=== PATIENT | male | born 1960 | race Caucasian/White ===

== ENCOUNTER 2017-06-29 15:41 | Inpatient (IN) | payer OTHER ==
[~2017-06-29] VITALS: Ht 182.9 cm; Wt 155.5 kg
[~2017-06-29 15:41] MED LIST: DIGO125T87 PO; FURO20TA4 PO; METO-409 PO; RIVA20TA PO
[2017-06-29] MEDS ORDERED: SODIUM CHLORIDE 0.9% 1000ML 1,000 ML IV ONE (16:29)
[2017-06-29 16:50] LABS: BASOPHILS % (AUTO) 0.3 % (0.0-5.0); HEMATOCRIT 45.9 % (42-54); LYMPHOCYTES % (AUTO) 14.1 % (21.0-51.0); MEAN CORPUSCULAR HEMOGLOBIN 30.9 pg (27.0-33.0); MEAN CORPUSCULAR HGB CONC 34.8 g/dL (32.0-36.0); MEAN CORPUSCULAR VOLUME 88.8 fL (79-99); MONOCYTES % (AUTO) 9.8 % (3.0-13.0); NEUTROPHILS % (AUTO) 75.8 % (40.0-77.0); PLATELET COUNT (AUTO) 148 K/uL (130-400); RED BLOOD CELL COUNT(AUTO) 5.17 MIL/uL (4.50-6.20); RED CELL DISTRIBUTION WIDTH 14.3 % (11.0-15.5); WHITE BLOOD COUNT (AUTO) 7.8 K/uL (4.8-10.8)
[2017-06-29 17:02] LABS: CREATININE 2.1 mg/dL (0.5-1.5); POTASSIUM 4.1 mmol/L (3.5-5.1)
[2017-06-29 17:03] LABS: INR 1.4 (0.85-1.15); PARTIAL THROMBOPLASTIN TIME 43.7 SEC (26.3-35.5); PROTHROMBIN TIME 14.6 SEC (9.6-11.6)
[2017-06-29 17:05] LABS: ALBUMIN 2.8 g/dL (3.5-5.0); BILIRUBIN,TOTAL 1.4 mg/dL (0.2-1.0); TOTAL PROTEIN, SERUM 6.2 g/dL (6.0-8.3)
[2017-06-29 23:41] LABS: APPEARANCE,URINE Clear (CLEAR); BILIRUBIN,URINE Small (NEGATIVE); COLOR,URINE Dark Yellow (YELLOW); GLUCOSE, URINE (UA) Negative (NEGATIVE); KETONES,URINE Trace mg/dL (NEGATIVE); LEUKOCYTE ESTERASE ,URINE Trace (NEGATIVE); NITRATE,URINE Negative (NEGATIVE); OCCULT BLOOD,URINE Negative (NEGATIVE); PH,URINE 5.5 (5.0-8.0); PROTEIN,URINE Trace (NEGATIVE)
[2017-06-30 00:02] LABS: BACTERIA,URINE Rare /HPF (None Seen); MUCUS,URINE Moderate LPF (None Seen); SQUAMOUS EPITHELIAL CELL,UR Moderate /LPF (0-2)
[2017-06-30] MEDS ORDERED: ACETAMINOPHEN 325 MG TAB PO PRN (02:15)
[2017-06-30] MEDS ORDERED: CEFTRIAXONE 1GM/D5W 50ML 50 ML IV SCH (02:15)
[2017-06-30] MEDS ORDERED: MORPHINE SULFATE 2 MG/ML 1ML SYG IV PRN (02:15)
[2017-06-30] MEDS ORDERED: HYDRALAZINE HCL 20 MG/ML VIAL IV PRN (02:15)
[2017-06-30] MEDS ORDERED: ONDANSETRON HCL 4 MG/2 ML VIAL IV PRN (02:15)
[2017-06-30] MEDS ORDERED: CEFTRIAXONE SODIUM 1 GM ONE (02:53)
[2017-06-30] MEDS: CEFTRIAXONE SODIUM 1 GM IVP SCH (03:00)
[2017-06-30 03:24] VITALS: BP 138/61
[2017-06-30] MEDS: SODIUM CHLORIDE 0.9% 1000ML 1,000 ML IV SCH ×2 (03:30→12:11)
[2017-06-30] MEDS ORDERED: SACU1TAB7 PO (05:03)
[2017-06-30 06:20] LABS: HEMATOCRIT 43.4 % (42-54); LYMPHOCYTES % (AUTO) 10.3 % (21.0-51.0); MEAN CORPUSCULAR VOLUME 88.3 fL (79-99); MONOCYTES % (AUTO) 11.3 % (3.0-13.0); NEUTROPHILS % (AUTO) 78.4 % (40.0-77.0); NUCLEATED RED BLOOD CELLS 0.2 % (0.0-0.19); PLATELET COUNT (AUTO) 144 K/uL (130-400); RED BLOOD CELL COUNT(AUTO) 4.91 MIL/uL (4.50-6.20); RED CELL DISTRIBUTION WIDTH 14.3 % (11.0-15.5); WHITE BLOOD COUNT (AUTO) 7.1 K/uL (4.8-10.8)
[2017-06-30 06:32] LABS: ALBUMIN 2.6 g/dL (3.5-5.0); BILIRUBIN,TOTAL 1.2 mg/dL (0.2-1.0); CREATININE 1.6 mg/dL (0.5-1.5); POTASSIUM 3.8 mmol/L (3.5-5.1); TOTAL PROTEIN, SERUM 6.1 g/dL (6.0-8.3)
[2017-06-30 07:36] VITALS: BP 125/59
[2017-06-30] MEDS ORDERED: METOPROLOL TARTRATE 1 MG/ML 5ML VIAL IV PRN (09:15)
[2017-06-30] MEDS: FAMOTIDINE 20MG TAB 20 MG TAB PO SCH ×2 (09:19→20:09)
[2017-06-30] MEDS: DIGOXIN 125 MCG TABLET PO SCH (09:19)
[2017-06-30] MEDS: METOPROLOL TARTRATE 50 MG TAB PO SCH ×2 (09:19→20:10)
[2017-06-30] MEDS: RIVAROXABAN 20 MG TABLET PO SCH (09:20)
[2017-06-30] MEDS: FUROSEMIDE 20 MG TABLET PO SCH (09:20)
[2017-06-30 11:49] VITALS: BP 95/46
[2017-06-30 11:58] LABS: MAGNESIUM 1.9 mg/dL (1.80-2.40); THYROID STIMULATING HORMONE 1.19 uIU/mL (0.36-3.74)
[2017-06-30 16:47] VITALS: BP 108/63
[2017-06-30 18:55] VITALS: BP 101/66
[2017-06-30 23:04] VITALS: BP 86/41
[2017-07-01] MEDS: SODIUM CHLORIDE 0.9% 1000ML 1,000 ML IV SCH (01:45)
[2017-07-01 02:56] VITALS: BP 107/71
[2017-07-01 04:08] LABS: BASOPHILS % (AUTO) 0.5 % (0.0-5.0); EOSINOPHILS % (AUTO) 0.1 % (0.0-8.0); HEMATOCRIT 41.4 % (42-54); LYMPHOCYTES % (AUTO) 20.7 % (21.0-51.0); MEAN CORPUSCULAR HEMOGLOBIN 31.3 pg (27.0-33.0); MEAN CORPUSCULAR HGB CONC 35.1 g/dL (32.0-36.0); MEAN CORPUSCULAR VOLUME 89.2 fL (79-99); MONOCYTES % (AUTO) 9.7 % (3.0-13.0); NUCLEATED RED BLOOD CELLS 0.1 % (0.0-0.19); PLATELET COUNT (AUTO) 142 K/uL (130-400); RED BLOOD CELL COUNT(AUTO) 4.64 MIL/uL (4.50-6.20); RED CELL DISTRIBUTION WIDTH 14.5 % (11.0-15.5); WHITE BLOOD COUNT (AUTO) 5.5 K/uL (4.8-10.8)
[2017-07-01] MEDS: CEFTRIAXONE SODIUM 1 GM IVP SCH (04:23)
[2017-07-01 04:35] LABS: ALANINE AMINOTRANSFERASE 90 U/L (12-78); ALBUMIN 2.2 g/dL (3.5-5.0); ASPARTATE AMINOTRANSFERASE 71 U/L (10-37); BILIRUBIN,TOTAL 0.7 mg/dL (0.2-1.0); CARBON DIOXIDE 24 mmol/L (21-32); CHLORIDE 98 mmol/L (101-111); CREATINE KINASE MB 1.2 ng/mL (0.5-3.6); CREATINE KINASE, TOTAL 177 U/L (21-232); CREATININE 1.3 mg/dL (0.5-1.5); GLOMERULAR FILTR. RATE CALC 60 mL/min (>60); GLUCOSE,RANDOM 113 mg/dL (70-105); MYOGLOBIN 132 ng/mL (10-92); POTASSIUM 3.5 mmol/L (3.5-5.1); SODIUM SERUM 133 mmol/L (136-145); TOTAL PROTEIN, SERUM 5.5 g/dL (6.0-8.3); TROPONIN I < 0.04 ng/mL (0.00-0.06); UREA NITROGEN, BLOOD 16 mg/dL (7-18)
[2017-07-01 07:00] VITALS: BP 117/74
[2017-07-01] MEDS: FAMOTIDINE 20MG TAB 20 MG TAB PO SCH (10:00)
[2017-07-01] MEDS: RIVAROXABAN 20 MG TABLET PO SCH (10:00)
[2017-07-01] MEDS: METOPROLOL TARTRATE 50 MG TAB PO SCH (10:01)
[2017-07-01] MEDS: DIGOXIN 125 MCG TABLET PO SCH (10:01)
[2017-07-01] MEDS: FUROSEMIDE 20 MG TABLET PO SCH (10:01)
[2017-07-01 11:00] VITALS: BP 116/67
[2017-07-01 16:00] VITALS: BP 109/62
== END 2017-07-01 18:00 | disposition home or self-care (01) | DRG 683 ==
LOC: EDH 15:41 → EDHIP 23:18 → 2AH 06-30 03:14
PROVIDERS: ADMIT Family Medicine; ATTEND Family Medicine
DX: N17.0 Acute kidney failure with tubular necrosis (principal); Z68.42 Body mass index [BMI] 45.0-49.9, adult; E66.01 Morbid (severe) obesity due to excess calories; I50.9 Heart failure, unspecified; I48.91 Unspecified atrial fibrillation; E86.0 Dehydration; R74.0 Nonspecific elevation of levels of transaminase and lactic acid dehydrogenase [LDH]; R79.89 Other specified abnormal findings of blood chemistry; Z88.6 Allergy status to analgesic agent; Z88.1 Allergy status to other antibiotic agents; Z79.899 Other long term (current) drug therapy
CPT/HCPCS: 36415; 71045; 80053; 81001; 82550; 82553; 83735; 83874; 84443; 84484; 85025; 85610; 85730; 87046; 87804; 93005; A4218; J0696; J3490; J7030

== ENCOUNTER → 2017-10-08 | Outpatient (CLI) | payer OTHER ==
[~2017-10-08] MED LIST changes: +SACU1TAB7 PO
== END | disposition home or self-care (01) ==
LOC: SHCH 13:51
PROVIDERS: ATTEND Internal Medicine Cardiovascular Disease
DX: I51.7 Cardiomegaly (principal); I42.9 Cardiomyopathy, unspecified
CPT/HCPCS: 93306

== ENCOUNTER 2020-06-08 10:49 | Day surgery (SDC) | payer OTHER ==
[2020-06-08] VITALS (9 sets, daily range): BP systolic 111–132; BP diastolic 77–97
[~2020-06-08] VITALS: Ht 182.9 cm; Wt 172.4 kg
[~2020-06-08 10:49] MED LIST changes: +DIGO125T71 PO; -DIGO125T87 PO
[2020-06-08] MEDS ORDERED: SODIUM CHLORIDE 0.9% 1000ML 1,000 ML IV ONE (11:09)
[2020-06-08] MEDS ORDERED: LIDOCAINE HCL 2% 20ML ONE (12:22)
[2020-06-08] MEDS ORDERED: GLYCOPYRROLATE 0.2 MG/ML 5 ML VIAL ONE (12:22)
[2020-06-08] MEDS ORDERED: PROPOFOL 10 MG/ML 20ML VIAL IV ONE ×2 (12:22→12:54)
== END 2020-06-08 14:00 | disposition home or self-care (01) ==
LOC: DAH 10:49
PROVIDERS: ATTEND Internal Medicine Gastroenterology
DX: K59.00 Constipation, unspecified (principal); K21.00 Gastro-esophageal reflux disease with esophagitis, without bleeding; D12.0 Benign neoplasm of cecum; K63.5 Polyp of colon; D12.3 Benign neoplasm of transverse colon; K29.00 Acute gastritis without bleeding; K57.30 Diverticulosis of large intestine without perforation or abscess without bleeding; K64.1 Second degree hemorrhoids; J45.909 Unspecified asthma, uncomplicated; I11.0 Hypertensive heart disease with heart failure; I50.9 Heart failure, unspecified; I48.91 Unspecified atrial fibrillation; I44.7 Left bundle-branch block, unspecified; Z86.010 Personal history of colon polyps; Z79.01 Long term (current) use of anticoagulants; Z88.8 Allergy status to other drugs, medicaments and biological substances; Z98.890 Other specified postprocedural states
CPT/HCPCS: 43239; 45380; 45385; 93005; A4215 ×2; A4221; A4222; A4223; A4606; A4620; A4657; A4663; J2704 ×2; J3490 ×2; J7030

== ENCOUNTER → 2020-06-28 | Outpatient (CLI) | payer OTHER | END | disposition home or self-care (01) | LOC: SHCH 12:51 | PROVIDERS: ATTEND Internal Medicine Cardiovascular Disease | DX: R06.09 Other forms of dyspnea (principal) | CPT/HCPCS: 93306; 93356 ==

== ENCOUNTER → 2023-10-09 | Outpatient (CLI) | payer OTHER ==
[~2023-10-09] VITALS: Wt 185.6 kg
== END | disposition home or self-care (01) ==
LOC: DTH 07:48
PROVIDERS: ATTEND Surgery
DX: I10 Essential (primary) hypertension (principal); K21.9 Gastro-esophageal reflux disease without esophagitis; E78.5 Hyperlipidemia, unspecified; G47.33 Obstructive sleep apnea (adult) (pediatric); E66.01 Morbid (severe) obesity due to excess calories; M19.91 Primary osteoarthritis, unspecified site; E78.00 Pure hypercholesterolemia, unspecified; K76.0 Fatty (change of) liver, not elsewhere classified
CPT/HCPCS: 97802

== ENCOUNTER → 2023-10-09 | Outpatient (CLI) | payer MEDICARE ==
[2023-10-09 08:46] LABS: BASOPHILS # (AUTO) 0.04 K/uL (0.00-0.20); BASOPHILS % (AUTO) 0.6 % (0.0-5.0); EOSINOPHILS # (AUTO) 0.07 K/uL (0.00-0.70); HEMATOCRIT 47.8 % (42-54); IMMATURE GRANULOCYTE ABSOLUTE 0.06 K/uL (0-1); LYMPHOCYTES # (AUTO) 1.5 K/uL (1.0-4.8); LYMPHOCYTES % (AUTO) 22.5 % (21.0-51.0); MEAN CORPUSCULAR HEMOGLOBIN 30.5 pg (27.0-33.0); MEAN CORPUSCULAR HGB CONC 33.5 g/dL (32.0-36.0); MONOCYTES # (AUTO) 0.5 K/uL (0.1-1.0); MONOCYTES % (AUTO) 6.9 % (3.0-13.0); NEUTROPHILS # (AUTO) 4.7 K/uL (1.8-7.7); NEUTROPHILS % (AUTO) 68.1 % (40.0-77.0); PLATELET COUNT (AUTO) 204 K/uL (130-400); RED BLOOD CELL COUNT(AUTO) 5.25 MIL/uL (4.50-6.20); RED CELL DISTRIBUTION WIDTH 13.4 % (11.0-15.5); WHITE BLOOD COUNT (AUTO) 6.8 K/uL (4.8-10.8)
[2023-10-09 08:55] LABS: HEMOGLOBIN A1C 6.2 % (4.0-6.0)
[2023-10-09 09:39] LABS: ALBUMIN 3.4 g/dL (3.5-5.0); BILIRUBIN,TOTAL 0.8 mg/dL (0.2-1.0); CREATININE 1.3 mg/dL (0.5-1.3); POTASSIUM 4.2 mmol/L (3.5-5.1); THYROID STIMULATING HORMONE 2.63 uIU/mL (0.36-3.74)
[2023-10-09 11:10] LABS: MAGNESIUM 1.9 mg/dL (1.80-2.40); T4 (THYROXINE) 8.2 ug/dL (4.7-13.3)
== END | disposition home or self-care (01) ==
LOC: LAB 07:54
PROVIDERS: ATTEND Internal Medicine Gastroenterology
DX: E66.01 Morbid (severe) obesity due to excess calories (principal); I48.91 Unspecified atrial fibrillation; E53.1 Pyridoxine deficiency; Z79.899 Other long term (current) drug therapy
CPT/HCPCS: 36415; 80053; 80061; 82306; 82607; 82728; 82746; 83036; 83540; 83550; 83735; 84207; 84425; 84436; 84439; 84443; 84446; 84481; 84590; 84630; 85025

== ENCOUNTER 2023-10-22 08:06 | Day surgery (SDC) | payer MEDICARE ==
[~2023-10-22] VITALS: Ht 182.9 cm; Wt 183.7 kg
[2023-10-22] VITALS (10 sets, daily range): BP systolic 93–143; BP diastolic 58–89; PULSE 64–91; RESP 15–17
[2023-10-22] MEDS ORDERED: 0.9%NACL 1000ML 1,000 ML IV ONE (09:30)
[2023-10-22] MEDS: 0.9%NACL 1000ML 1,000 ML IV ONE (09:39)
[2023-10-22] MEDS ORDERED: PROPOFOL 10 MG/ML 20ML VIAL IV ONE (10:48)
== END 2023-10-22 12:15 | disposition home or self-care (01) ==
LOC: ENDO 08:06 → DAH 08:39 → ENDO 12:15
PROVIDERS: ATTEND Internal Medicine Gastroenterology
DX: Z12.11 Encounter for screening for malignant neoplasm of colon (principal); D12.3 Benign neoplasm of transverse colon; K64.9 Unspecified hemorrhoids; K57.30 Diverticulosis of large intestine without perforation or abscess without bleeding; K29.50 Unspecified chronic gastritis without bleeding; E66.01 Morbid (severe) obesity due to excess calories; J45.20 Mild intermittent asthma, uncomplicated; M15.9 Polyosteoarthritis, unspecified; I48.20 Chronic atrial fibrillation, unspecified; Z98.890 Other specified postprocedural states; Z68.43 Body mass index [BMI] 50.0-59.9, adult; Z79.01 Long term (current) use of anticoagulants
CPT/HCPCS: 45385; 43239; J7030 ×2; J2704; A4620; A4215 ×2; A4223; A4222; A4221; A4663; A4606; J3490

== ENCOUNTER → 2023-11-06 | Outpatient (CLI) | payer OTHER | END | disposition home or self-care (01) | LOC: DTH 14:09 | PROVIDERS: ATTEND Surgery | DX: E66.01 Morbid (severe) obesity due to excess calories (principal); M19.91 Primary osteoarthritis, unspecified site; E78.00 Pure hypercholesterolemia, unspecified; K76.0 Fatty (change of) liver, not elsewhere classified; Z68.43 Body mass index [BMI] 50.0-59.9, adult | CPT/HCPCS: 97803 ==

== ENCOUNTER → 2024-01-25 | Outpatient (CLI) | payer MEDICARE ==
[~2024-01-25] MED LIST changes: +SACU1TAB4 PO; -SACU1TAB7 PO
== END | disposition home or self-care (01) ==
LOC: SHCH 07:59
PROVIDERS: ATTEND Internal Medicine Cardiovascular Disease
DX: I08.8 Other rheumatic multiple valve diseases (principal); I48.0 Paroxysmal atrial fibrillation
CPT/HCPCS: 93306

== ENCOUNTER 2025-02-25 07:45 | Day surgery (SDC) | payer MEDICARE ==
--- NOTE | 2025-02-23 09:33 | EKG ---
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1960 Requested By: LUCY SCOTT Order Number: [id number] Reading MD: Davida Eduardo Measurements Intervals [place] Rate: 69 P: 0 SD: 0 QRS: 77 QRSD: 125 T: -83 QT: 419 QTc: 461 Interpretive Statements Atrial fibrillation Left bundle branch block Compared to ECG 12/19/2023 14:40:15 Left bundle-branch block now present Ventricular premature complex(es) no longer present Intraventricular conduction delay no longer present Myocardial infarct finding no longer present Early repolarization no longer present Electronically Signed On 02-24-2025 10:24:46 CDT by Davida Eduardo Please click the below link to view image of tracing.
[2025-02-23 09:37] LABS: IMMATURE GRANULOCYTE ABSOLUTE 0.08 K/uL (0-1); NUCLEATED RED BLOOD CELLS 0.0 % (0.0-0.19); PLATELET COUNT (AUTO) 208 K/uL (130-400); RED BLOOD CELL COUNT(AUTO) 4.99 MIL/uL (4.50-6.20); RED CELL DISTRIBUTION WIDTH 14.3 % (11.0-15.5); WHITE BLOOD COUNT (AUTO) 8.6 K/uL (4.8-10.8)
[2025-02-23 09:39] VITALS: BP 129/70; PULSE 71; RESP 17; TEMP 97.5
[2025-02-23 09:48] LABS: CREATININE 1.3 mg/dL (0.5-1.3); GLOMERULAR FILTR. RATE CALC 61.0 mL/min (>90); GLUCOSE,RANDOM 128.0 mg/dL (70-105); SODIUM SERUM 140.0 mmol/L (136-145); UREA NITROGEN, BLOOD 19.0 mg/dL (7-18)
[2025-02-23 09:59] LABS: INR 1.24 (0.85-1.15)
--- NOTE | 2025-02-23 11:27 | HMCIMG ---
EXAM: CR Chest, 1 View on 2 radiographs. CLINICAL HISTORY: "R ". No other history provided. COMPARISON: None provided. FINDINGS: LUNGS: There is no mass, infiltrate, or acute pulmonary abnormality. PLEURAL SPACES: No evidence of pleural effusion or pneumothorax. MEDIASTINUM: Cardiac size and mediastinal contours within normal limits. BONES: No aggressive appearing osseous lesion seen. IMPRESSION: No acute cardiopulmonary pathology is evident. /Gaylord
--- NOTE | 2025-02-23 16:46 | NUR ---
report reported coags to ana lackey to proceed Addendum: 02/24/25 at 1620 by SHERON BLANC RN RN bmp also reported. ok to proceed
[~2025-02-25] VITALS: Ht 195.6 cm; Wt 191.9 kg
[2025-02-25] VITALS (9 sets, daily range): BP systolic 96–138; BP diastolic 56–78; PULSE 67–88; RESP 14–19; TEMP 97.2–97.6
[~2025-02-25 07:45] MED LIST changes: +UBID100C10 PO; +[UNRECOGNIZED DRUG - OTHER] PO
[2025-02-25] MEDS: 0.9%NACL 1000ML 1,000 ML IV SCH (09:08)
[2025-02-25] MEDS ORDERED: IOHEXOL 350 MG/ML 100ML INFUS..BTL IV ONE (12:37)
[2025-02-25] MEDS ORDERED: LIDOCAINE HCL 400MG/20ML VIAL ONE (12:37)
[2025-02-25] MEDS ORDERED: HEParin-NS 1,000 UNIT/500 ML 1,000 ML IV ONE (12:38)
[2025-02-25] MEDS ORDERED: NITROGLYCERIN 50MG VIAL ONE (12:38)
[2025-02-25] MEDS ORDERED: MIDAZOLAM HCL 1 MG/ML 2ML VIAL ONE (13:24)
[2025-02-25] MEDS ORDERED: IOHEXOL-350 50ML VIAL IV ONE (14:09)
[2025-02-25] MEDS ORDERED: DEXTROSE 50%-WATER 50 ML DISP.SYRIN IV PRN (14:30)
[2025-02-25] MEDS ORDERED: GLUCAGON 1MG KIT 1 MG ML IM PRN (14:30)
[2025-02-25] MEDS ORDERED: 0.9%NACL 1000ML 1,000 ML IV SCH (14:30)
--- NOTE | 2025-02-25 14:30 | PRN ---
Left Heart Cath-Malik PROCEDURE: 1. Right radial arterial sheath placement 6 [place] 2. Selective coronary angiogram. 3. Left heart catheterization. 4. Left ventriculogram. INDICATIONS: Shortness of breath on exertion DESCRIPTION OF PROCEDURE: The patient was brought to the catheterization suite and prepped and draped in sterile fashion. An IV was started if not already in place and right radial region was exposed for access. 1% lidocaine was used for local anesthesia and then a micropuncture kit was used to gain access guided by surface ultrasound and once free-flowing blood was seen, modified Seldinger technique was utilized to place a 6 [place] sheath into the right radial artery. Next, tic 4 catheter was used to engage the left main artery and a JR4 catheter was then used to engage the right coronary artery and multiple hand contrast injections were performed in different views to define the coronary anatomy. Next a 6 [place] angled pigtail was used across aortic valve pressure measurements were obtained and then a left ventriculogram was performed in the 30 POLLOCK position. This was done with the power injector. At end of case TR band was used for removal of radial artery sheath and no complications occurred. FINDINGS: The left main artery bifurcates into the LAD and left circumflex and has no stenosis present. The left anterior descending artery has a large diagonal branch vessel noted and there was a proximal mid stenosis of the proximal 20% within the LAD. Diagonal branch vessel bifurcates distally is large and has no stenosis. Ongoing LAD is free of any significant stenosis. The left circumflex artery is a codominant system giving rise to the left posterolateral branch. There was no stenosis noted in the system. The right coronary artery is a codominant vessel giving rise to the PDA and there was no stenosis present. The ejection fraction is approximately 30%. LVEDP is not elevated and measured at 8 mm of mercury. There was no evidence of aortic stenosis or significant mitral regurgitation noted. RECOMMENDATIONS: Continue current medical management. Reinitiate Mickey caballero Aggressively pursue weight reduction LUCY MALIK MD Feb 25, 2025 14:30
--- NOTE | 2025-02-25 16:09 | NUR ---
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 NO REDNESS OR SWELLING TO RIGHT WRIST. REMOVED VASC BAND. [place] PREP TO [place] WRIST. STERILE 4X4 GAUZE IN PLACE AND STERILE TEGADERM IN PLACE. NO ACTIVE BLEEDING OR DRAINAGE TO RIGHT WRIST SOFT TO TOUCH. STERILE DRESSING IN PLACE NO ACTIVE BLEEDING.
== END 2025-02-25 19:02 | disposition home or self-care (01) ==
LOC: DAH 07:45
PROVIDERS: ATTEND Internal Medicine Cardiovascular Disease
DX: R94.39 Abnormal result of other cardiovascular function study (principal); I25.110 Atherosclerotic heart disease of native coronary artery with unstable angina pectoris; R06.02 Shortness of breath; I11.0 Hypertensive heart disease with heart failure; I48.91 Unspecified atrial fibrillation; I50.42 Chronic combined systolic (congestive) and diastolic (congestive) heart failure; M10.9 Gout, unspecified; I42.8 Other cardiomyopathies; E66.9 Obesity, unspecified; Z68.43 Body mass index [BMI] 50.0-59.9, adult; Z88.5 Allergy status to narcotic agent; Z98.890 Other specified postprocedural states; Z79.899 Other long term (current) drug therapy
CPT/HCPCS: 80048; 85025; 85610; 85730; 36415; 71045; 93005; 99156; 99157 ×2; 93458; Q9965; A4223 ×3; C1769 ×2; C1894; A4649; J3010; J3490 ×3; J1644 ×2; J2250; Q9967 ×2; A4215; A4222; A4221; A4663; A4216; A4606